=== PATIENT | female | born 1980 | race African-American/Black ===

== ENCOUNTER 2017-10-19 10:15 | Inpatient (IN) | payer BC ==
[2017-10-19 10:54] VITALS: BMI 36.6
[2017-10-23] MEDS ORDERED: Gabapentin 300 MG CAP ONE (06:23)
[2017-10-23] MEDS ORDERED: Famotidine/PF 20 mg/2ml Vial ONE (06:24)
[2017-10-23] MEDS ORDERED: CeleCOXIB 100 MG CAP ONE (06:24)
[2017-10-23] MEDS ORDERED: Clindamycin/D5W 900 mg/50 ml Premix Bag ONE (06:25)
[2017-10-23] MEDS ORDERED: Levofloxacin 500 mg/D5W 100 ml Premix Bag ONE (06:25)
[2017-10-23] MEDS ORDERED: Fentanyl 100 MCG/2 ML VIAL ONE (06:46)
[2017-10-23] MEDS ORDERED: Bupivacaine HCl 0.5%/Epinephrine 1:200,000/PF 30 ml Vial ONE (06:58)
[2017-10-23] MEDS ORDERED: Midazolam HCl 2 mg/2 ml Vial ONE (07:20)
--- NOTE | 2017-10-23 07:49 | HP ---
DATE OF ADMISSION: 10/23/2017 ADMITTING DIAGNOSES: Fibroids, menorrhagia with symptomatic anemia, requiring transfusion. SCHEDULED PROCEDURE: Total laparoscopic hysterectomy and bilateral salpingectomy. HISTORY OF PRESENT ILLNESS: Ms. Melvin is a 36-year-old 3, para 3, status post x3, was re ferred to me by Irma Knox back in May. She suffers from menorrhagia, has anemia and has re quired transfusion in the past. She had an ultrasound which revealed 2 intracavitary fibroids measuring 2 cm in greatest diameter. She desires definitive surgic al management. OB AND BROADCAST TECHNICIAN HISTORY: As noted. No history of dysplasia. The patient had a Pap that was negative wit h negative high risk HPV and a benign endometrial biopsy back in May. She has undergone IV iron in fusion by Dr. Jamila Mai. PAST MEDICAL HISTORY: Significant for benign hypertension. PAST SURGICAL HISTORY: BTL. ALLERGIES: Denies. MEDICATIONS: Blood pressure medicine (unknown), oral iron and vitamin C. SOCIAL HISTORY: Denies tobacco, alcohol, IV drug abuse. FAMILY HISTORY: Noncontributory. REVIEW OF SYSTEMS: Noncontributory. PHYSICAL EXAMINATION: GENERAL: Black female. VITAL SIGNS: 5 feet 5 inches, 325 pounds, BMI 37, blood pressure 142/90. HEENT: Within normal limits. LUNGS: Clear to auscultation bilaterally. HEART: Regular rhythm. BREASTS: No masses bilaterally. ABDOMEN: Soft, nontender, no rebound or guarding. PELVIC: Vulva without lesions. Vagina without discharge. Cervix parous, uterus anteverted 8-10 wee k size, irregular. Adnexa no masses bilaterally. EXTREMITIES: Without clubbing, cyanosis or edema. LABORATORY DATA: Pap smear, an EMB as noted in the HPI. RADIOLOGY: Ultrasound as noted in the HPI. IMPRESSION: Fibroids with symptomatic menorrhagia leading to anemia requiring IV iron infusion. PLAN: Discussed with the patient options including endometrial ablation, progestin, IUD, and hystere ctomy. The patient desires to move with definitive surgical management or possible salpingectomy at [facility] on 10/23/2012, appropriate antibiotic and DVT prophylaxis.
[2017-10-23] MEDS ORDERED: Promethazine HCl 25 MG/ML VIAL SLOW IVP PRN (08:34)
[2017-10-23] MEDS ORDERED: Ondansetron HCl/PF 4 MG/2 ML Vial IVP PRN ×2 (08:34→11:28)
[2017-10-23] MEDS ORDERED: Promethazine HCl 25 MG/ML VIAL IM PRN ×2 (08:34→11:28)
[2017-10-23] MEDS ORDERED: Bisacodyl 10 MG SUPP PR PRN (11:28)
[2017-10-23] MEDS ORDERED: diphenhydrAMINE 25 MG CAP PO PRN (11:28)
[2017-10-23] MEDS ORDERED: Simethicone Chewable 80 MG TAB PO PRN (11:28)
[2017-10-23] MEDS ORDERED: Zolpidem Tartrate 5 MG TAB PO PRN (11:28)
[2017-10-23] MEDS ORDERED: HYDROcodone/Acetaminophen 10/325 mg Tablet PO PRN ×2 (11:28)
[2017-10-23] MEDS ORDERED: Ketorolac Tromethamine 30 MG/ML VIAL IVP SCH ×2 (12:00→15:00)
[2017-10-23] MEDS: Sodium Chloride 0.9% 1,000 ML IV SCH ×2 (12:06→21:22)
[2017-10-23] MEDS ORDERED: Lidocaine 1% PF 5 ML VIAL ONE (12:08)
[2017-10-23] MEDS ORDERED: Ondansetron HCl/PF 4 MG/2 ML Vial ONE (12:08)
[2017-10-23] MEDS ORDERED: Glycopyrrolate 0.2 MG/ML 5 ML SYRINGE ONE (12:08)
[2017-10-23] MEDS ORDERED: Ketorolac Tromethamine 30 MG/ML VIAL ONE (12:08)
[2017-10-23] MEDS ORDERED: PROPOFOL 200 MG/20 ML VIAL ONE (12:08)
[2017-10-23] MEDS ORDERED: Dexamethasone 20 MG/5 ML VIAL ONE (12:08)
--- NOTE | 2017-10-23 13:41 | OP ---
DATE OF PROCEDURE: 10/23/2017 PREOPERATIVE DIAGNOSES: Dysmenorrhea, fibroids and menorrhagia with anemia. POSTOPERATIVE DIAGNOSES: Dysmenorrhea, fibroids and menorrhagia with anemia. PROCEDURE: Total laparoscopic hysterectomy and bilateral salpingectomy. SURGEON: Tom Ramos M.D. HAND TRIMMER: Anna Hernandez D.O. ANESTHESIA: General endotracheal. ESTIMATED BLOOD LOSS: 50 mL COMPLICATIONS: None. DRAINS: Sheldon to gravity. OPERATIVE FINDINGS: 1. Approximately 8-10 week size uterus consistent with adenomyosis and fibroids. 2. Normal appearing tubes and ovaries bilaterally. 3. Hemostasis, clear urine, counts correct at the end of the procedure. DISPOSITION: To the recovery room in good condition. DESCRIPTION OF OPERATIVE PROCEDURE: After obtaining proper informed consent, the patient was taken t o the operating room where general endotracheal anesthesia achieved without difficulty. The patient was prepped and draped in dorsal lithotomy position in Grabiel stirrups. Side-hand speculum was placed in vagina, cervix identified, grasped with single tooth tenaculum. Uterus sounded to 12 cm. A 10 c m obturator with a 4 cm vaginal blood bank assistant was placed using the EMILY manipulator. Tenaculum and spec ulum were removed. Sheldon catheter placed. Oil Field Equipment Mechanic Supervisor turned his attention to the abdominal portion of procedure. Gloves were changed and a 12 mm skin incision made in the superior aspect of the umbilic us. Freeze needle was inserted into the abdominal cavity. Insufflation carried out with carbon diox jessica to a max pressure of 15, volume 3.5 liters. A 12 mm trocar was then inserted, which revealed no evidence of trauma to the underlying viscera. Right and left lateral robot trocars were placed later al to the epigastric vessels and an 11 mm right upper quadrant nursing assistants teacher port. The patient was place d in steep Trendelenburg position and da Danielle robot docked with fenestrated forceps in the left hand and monopolar scissors in the right. Uterus was mobilized. The mesosalpinx was coagulated and spivey sected, amputating the fallopian tube on the patient's right. This was removed. Utero-ovarian ligam ent, round and broad were then coagulated and transected and this was carried down to the cardinals d own to the level of the internal cervical os. Anteriorly, the vesicouterine peritoneum was dissected off sharply taking the peritoneum and the bladder off the cervix and upper vagina. Skeletonization of the uterine vessels carried out on the patient's right and these were coagulated and not transecte d. Attention was turned to the patient's left where identical procedure was carried out removing the fallopian tube, coagulating the round ligament, broad and utero-ovarian ligament and then carrying o n down to the level of the internal cervical os. Again, the uterine vessels were coagulated and not transected. Posteriorly, the peritoneum was taken off the cul-de-sac of Arnol and the vagina enter ed at 6 o'clock. This is extended from 6 to 8 and from 6 to 4. Anteriorly, the vagina was entered a t 12 o'clock and extended from 12 to 10 and 12 to 2. Cardinal ligaments and uterine vessels were coa gulated and transected on the left and in the right amputating the specimen, which was pulled into th e vagina to maintain pneumoperitoneum. Suction irrigation was carried out and monopolar scissors wer e replaced with Bolivar needle driver/merchandiser. Small areas of bleeding along the cuff were rendered hemostatic using bipolar cautery and the cuff was closed using a running continuous 2-0 PDS Stratafix suture. Good hemostasis was noted after suction irrigation was carried out. Tisseel was applied across the s urgical pedicles for hemostasis. Da Danielle instruments were removed. Robot undocked and the abdomen desufflated of carbon dioxide. Trocars removed. Large trocar sites were reapproximated using 0 Vicr yl and a UR-5 needle and skin reapproximated x4 using 4-0 Monocryl and Dermabond. Specimen removed f rom the vagina and vagina inspected and noted to be without laceration or bleeding. The patient was awakened, extubated and taken to recovery room.
[2017-10-23] MEDS: Acetaminophen 1,000 MG in Premix Bag 1 BAG IVPB SCH ×2 (19:04→23:51)
[2017-10-23] MEDS: Gabapentin 300 MG CAP PO SCH (21:24)
[2017-10-23] MEDS: CeleCOXIB 100 MG CAP PO SCH (21:24)
[2017-10-24] MEDS: Sodium Chloride 0.9% 1,000 ML IV SCH (00:17)
[2017-10-24] MEDS: Acetaminophen 1,000 MG in Premix Bag 1 BAG IVPB SCH (05:28)
[2017-10-24 05:45] VITALS: TEMP 98.8
[2017-10-24 06:08] LABS: Hemoglobin 11.5 g/dL (12.0-16.0); Mean Corpuscular HGB CONC 34.6 g/dL (32.0-36.0); Mean Corpuscular Hemoglobin 32.6 pg (27.0-31.0); Mean Corpuscular Volume 94.1 fL (78.0-98.0); Mean Platelet Volume 8.1 fL (7.4-10.4); Platelet Count 234 thou/uL (130-400); RBC Distribution Width 11.9 % (11.5-14.5); Red Blood Cell (RBC) Count 3.53 mill/uL (4.20-5.40); White Blood Cell (WBC) Count 6.9 thou/uL (4.8-10.8)
[2017-10-24 07:20] VITALS: BP 141/83
[2017-10-24] MEDS: CeleCOXIB 100 MG CAP PO SCH (08:33)
[2017-10-24] MEDS: Gabapentin 300 MG CAP PO SCH (08:33)
[2017-10-24] MEDS ORDERED: Lisinopril/Hydrochlorothiazide 10 mg/12.5 mg Tablet PO SCH (09:00)
--- NOTE | 2017-10-24 13:01 | DIS ---
DATE OF ADMISSION: 10/23/2017 DATE OF DISCHARGE: 10/24/2017 PRIMARY ADMISSION DIAGNOSES: Dysmenorrhea, menorrhagia, and intracavitary fibroids. PRIMARY PROCEDURE: Total laparoscopic hysterectomy with bilateral salpingectomy with da Danielle robot- assist. SUMMARY OF HOSPITAL COURSE: The patient underwent the aforementioned procedure at 0800 on 10/23/2017 . She had estimated blood loss of 50 mL. No obvious complications were encountered at the time of h er surgery. She had good urine output in the postoperative period. She tolerated p.o. well and was ambulating within 6 hours of surgery. Postoperative day #1 hematocrit was 33%. T-max was 99.1 and g ood urine output was achieved. LUNGS: Physical examination revealed clear lungs. HEART: Regular rate and rhythm. ABDOMEN: Soft and nontender, without rebound or guarding. Incisions were intact and dry. Perineum was dry. EXTREMITIES: Without clubbing, cyanosis or edema. The patient will be discharged home with follow up in 4 weeks with pelvic rest until 4-6 weeks postop eratively. Discharge medication including resuming her antihypertensives as well as [place] which was sent electro nically to her pharmacy in [place].
== END 2017-10-24 08:50 | disposition home or self-care (01) | DRG 743 ==
LOC: SURG A 10-23 06:04 → EEVIPCON 10-23 10:15 → 3SE 10-23 10:56
PROVIDERS: ADMIT Obstetrics & Gynecology; ATTEND Obstetrics & Gynecology
PROC: 0UT94ZZ Resection of Uterus, Percutaneous Endoscopic Approach (ICD-10-PCS; principal; 2017-10-23)
PROC: 0UT74ZZ Resection of Bilateral Fallopian Tubes, Percutaneous Endoscopic Approach (ICD-10-PCS; 2017-10-23)
PROC: 8E0W4CZ Robotic Assisted Procedure of Trunk Region, Percutaneous Endoscopic Approach (ICD-10-PCS; 2017-10-23)
DX: D25.1 Intramural leiomyoma of uterus (principal); N92.0 Excessive and frequent menstruation with regular cycle; D64.9 Anemia, unspecified
CPT/HCPCS: 36415; 85027; 88307; J0131; J0670; J1100; J1885; J1956; J2001; J2250; J2405; J2704; J3010; J3490; S0028

== ENCOUNTER 2017-10-19 10:20 | Outpatient (CLI) | payer BC ==
[2017-10-19 12:07] LABS: Hemoglobin 11.8 g/dL (12.0-16.0); Mean Corpuscular HGB CONC 33.9 g/dL (32.0-36.0); Mean Corpuscular Hemoglobin 32.7 pg (27.0-31.0); Mean Corpuscular Volume 96.5 fL (78.0-98.0); Mean Platelet Volume 8.5 fL (7.4-10.4); Platelet Count 236 thou/uL (130-400); RBC Distribution Width 12.1 % (11.5-14.5); Red Blood Cell (RBC) Count 3.59 mill/uL (4.20-5.40); White Blood Cell (WBC) Count 3.6 thou/uL (4.8-10.8)
[2017-10-19 12:27] LABS: Anion Gap 12 mmol/L (10-20); BUN (Urea Nitrogen) 7 mg/dL (7.0-18.7); Calc. Creatinine Clearance 0 mL/min (70-130); Calcium 9.6 mg/dL (7.8-10.44); Carbon Dioxide 24 mmol/L (22-29); Chloride 108 mmol/L (98-107); Estimated GFR-MDRD Greater than 90; Glucose 82 mg/dL (70-105); Sodium 140 mmol/L (136-145)
== END 2017-10-19 10:21 | disposition home or self-care (01) ==
LOC: LABBT 10:20
PROVIDERS: ATTEND Obstetrics & Gynecology
DX: Z01.812 Encounter for preprocedural laboratory examination (principal); N92.0 Excessive and frequent menstruation with regular cycle; D25.9 Leiomyoma of uterus, unspecified; D64.9 Anemia, unspecified
CPT/HCPCS: 80048; 85027; 86850; 86900; 86901; 93005; 93010